=== PATIENT | female | born 2000 | race Caucasian/White ===

== ENCOUNTER 2022-10-21 21:44 | Emergency (ER) | payer MEDICAID ==
[~2022-10-21] VITALS: Ht 167.6 cm; Wt 62.0 kg
[2022-10-21] MEDS ORDERED: VENTOLIN HFA18 GM INH (21:57)
[2022-10-21] MEDS ORDERED: ZYRTEC10 MG PO (21:57)
--- OUTSIDE RECORDS SUMMARY | 2022-10-21 22:43 | XMS ---
PreManage Notification: NILTON RAIN [employer] Events No recent Security Events currently on file CRITERIA MET - [facility] - 2 Visits in 30 Days CARE PROVIDERS [facility] 07/05/2015-Current PHONE: Unknown Sophie has no Care Guidelines for this patient. [facility] VISIT COUNT (12 MO.) [address] TOTAL 2 NOTE: Visits indicate total known visits. ED/UCC VISIT TRACKING (12 MO.) 10/21/2022 21:45 [facility] TYPE: Emergency COMPLAINT: - ALLERGIC REACTION, MEDICATION REFILL 10/16/2022 08:29 [facility] TYPE: Emergency COMPLAINT: - Allergic Reaction DIAGNOSES: - Allergic Reaction - Allergy, unspecified, initial encounter INPATIENT VISIT TRACKING (12 MO.) No inpatient visits to display in this time frame [email or web address]
== END 2022-10-21 22:08 | disposition home or self-care (01) ==
LOC: ED 21:44
DX: Z76.0 Encounter for issue of repeat prescription (principal); J45.909 Unspecified asthma, uncomplicated
CPT/HCPCS: 99281